=== PATIENT | female | born 1990 | race Caucasian/White ===

== ENCOUNTER 2016-07-04 10:10 | Emergency (ER) | payer OTHER ==
[~2016-07-04] VITALS: Ht 160 cm; Wt 120.0 kg
[~2016-07-04 10:10] MED LIST: BACTRIM DS 8001 TAB PO; CEFTIN250 M1 PO; LORTAB 5/500 501 TAB PO; NO HOME MEDICATIONS; NORCO 325 MG-51 TAB PO; TAMIFLU 75MG75 MG PO; ZOFRAN 4MG T4 MG/TAB PO
[2016-07-04 10:14] VITALS: BP 173/78
[2016-07-04 10:55] LABS: BASO % 0.3 % (0.0-2.0); EOS # 0.3 (0.0-0.7); EOS % 2.4 % (0-4.0); GRAN # 5.9 (1.4-6.5); GRAN % 49.9 % (42.2-75.2); HEMATOCRIT 45.2 % (37.0-47.0); HEMOGLOBIN 14.4 g/dl (12.5-16.0); LYMPH # 4.8 (1.2-3.4); LYMPH % 40.3 % (20.0-51.0); MEAN CELL VOLUME 78 fl (80.0-100.0); MEAN CORPUSCULAR HEMOGLOBIN 25 pg (27.0-31.0); MEAN CORPUSCULAR HGB CONC 32 g/dl (33.0-37.0); MEAN PLATELET VOLUME 9.7 fl (7.4-10.4); MONO # 0.8 (0.1-0.6); MONO % 6.7 % (1.7-9.3); PLATELET COUNT 442 K/mm3 (130-400); RED BLOOD COUNT 5.78 M/mm3 (4.10-5.30); REDCELL DISTRIBUTION WIDTH-CV 12.8 % (11.5-14.5); WHITE BLOOD COUNT 11.9 K/mm3 (4.8-10.8)
[2016-07-04 10:58] LABS: PH 5 (5-8); URINE APPEARANCE Hazy; URINE BACTERIA Rare /hpf; URINE BILIRUBIN Negative (NEGATIVE); URINE BLOOD Negative (NEGATIVE); URINE COLOR Yellow; URINE GLUCOSE Negative (NEGATIVE); URINE KETONE Negative (NEGATIVE); URINE RBC 0-2 /hpf; URINE UROBILINOGEN Negative (NEGATIVE); URINE WBC 0-2 /hpf
[2016-07-04 11:08] VITALS: TEMP 98.3
[2016-07-04 11:12] LABS: ADJUSTED CALCIUM 10.1 mg/dL (8.4-10.2); ALBUMIN 4.4 gm/dL (3.5-5.0); BILIRUBIN,TOTAL 0.6 mg/dL (0.0-1.0); C-REACTIVE PROTEIN 3.2 mg/dL (0.0-0.9); CALCIUM 10.4 mg/dL (8.4-10.2); CREATININE, serum 0.59 mg/dL (0.52-1.25); TOTAL PROTEIN 8.6 gm/dL (6.4-8.2)
[2016-07-04 12:07] VITALS: PULSE 105
[2016-07-04] MEDS ORDERED: ZOFRAN ODT4 MG PO (12:10)
[2016-07-04] MEDS ORDERED: NORCO 325 MG-51 TAB PO (12:14)
== END 2016-07-04 12:19 | disposition home or self-care (01) ==
LOC: COL.ER 10:10
PROVIDERS: Emergency Medicine
DX: R10.31 Right lower quadrant pain (principal)
CPT/HCPCS: J1885; J2405; J7030; Q9967

== ENCOUNTER 2017-09-12 11:25 | Emergency (ER) | payer SELFPAY ==
[~2017-09-12] VITALS: Ht 160 cm; Wt 126.8 kg
[~2017-09-12 11:25] MED LIST changes: +ZOFRAN ODT4 MG PO
[2017-09-12 11:29] VITALS: BP 147/89; TEMP 98
[2017-09-12 12:09] LABS: BASO % 0.4 % (0.0-2.0); EOS # 0.3 (0.0-0.7); EOS % 2.8 % (0-4.0); GRAN # 5.3 (1.4-6.5); GRAN % 50.1 % (42.2-75.2); HEMATOCRIT 41.2 % (37.0-47.0); HEMOGLOBIN 13.6 g/dl (12.5-16.0); LYMPH # 4.5 (1.2-3.4); LYMPH % 42.9 % (20.0-51.0); MEAN CELL VOLUME 79 fl (80.0-100.0); MEAN CORPUSCULAR HEMOGLOBIN 26 pg (27.0-31.0); MEAN CORPUSCULAR HGB CONC 33 g/dl (33.0-37.0); MEAN PLATELET VOLUME 9.4 fl (7.4-10.4); MONO # 0.4 (0.1-0.6); MONO % 3.5 % (1.7-9.3); PLATELET COUNT 350 K/mm3 (130-400); RED BLOOD COUNT 5.22 M/mm3 (4.10-5.30); REDCELL DISTRIBUTION WIDTH-CV 13.6 % (11.5-14.5)
[2017-09-12 12:11] LABS: ALANINE AMINOTRANSFERASE 39 U/L (9-52); ALKALINE PHOSPHATASE 73 U/L (50-136); ANION GAP 12 mmol/L (7-16); AST,SGOT 20 U/L (15-37); BILIRUBIN,TOTAL 0.3 mg/dL (0.0-1.0); BLOOD UREA NITROGEN 11 mg/dL (7-17); CALCIUM 9.4 mg/dL (8.4-10.2); CARBON DIOXIDE 27 mmol/L (22-30); CHLORIDE 102 mmol/L (98-107); CREATININE, serum 0.67 mg/dL (0.52-1.25); GLUCOSE 123 mg/dL (74-106); LIPASE 38 U/L (23-300); SODIUM 140 mmol/L (137-145); TOTAL PROTEIN 7.4 gm/dL (6.4-8.2)
[2017-09-12 12:24] LABS: TROPONIN-I < 0.012 ng/mL (0.000-0.034)
[2017-09-12] MEDS ORDERED: PROTONIX 40MG T40 MG PO (12:51)
[2017-09-12 13:05] VITALS: PULSE 79
== END 2017-09-12 13:05 | disposition home or self-care (01) ==
LOC: COL.ER 11:25
PROVIDERS: Emergency Medicine
DX: K21.9 Gastro-esophageal reflux disease without esophagitis (principal); F17.210 Nicotine dependence, cigarettes, uncomplicated

== ENCOUNTER 2018-11-30 22:44 | Emergency (ER) | payer SELFPAY ==
[~2018-11-30] VITALS: Ht 175.3 cm; Wt 127.3 kg
[~2018-11-30 22:44] MED LIST changes: +PROTONIX 40MG T40 MG PO
[2018-11-30 22:49] VITALS: TEMP 98.2
[2018-11-30] MEDS ORDERED: MOTRIN 200200 MG/TAB PO (23:04)
[2018-11-30 23:54] LABS: HEMATOCRIT 40.7 % (37.0-47.0); HEMOGLOBIN 13.1 g/dl (12.5-16.0); MEAN CELL VOLUME 78 fl (80.0-100.0); MEAN CORPUSCULAR HEMOGLOBIN 25 pg (27.0-31.0); MEAN CORPUSCULAR HGB CONC 32 g/dl (33.0-37.0); MEAN PLATELET VOLUME 9.8 fl (7.4-10.4); PLATELET COUNT 411 K/mm3 (130-400); REDCELL DISTRIBUTION WIDTH-CV 13.5 % (11.5-14.5)
[2018-11-30 23:55] LABS: ALANINE AMINOTRANSFERASE 9 U/L (9-52); ALBUMIN 4.3 gm/dL (3.5-5.0); ALKALINE PHOSPHATASE 73 U/L (50-136); ANION GAP 13 mmol/L (7-16); AST,SGOT 26 U/L (15-37); BILIRUBIN,TOTAL 0.4 mg/dL (0.0-1.0); BLOOD UREA NITROGEN 15 mg/dL (7-17); C-REACTIVE PROTEIN 4.2 mg/dL (0.0-0.9); CARBON DIOXIDE 23 mmol/L (22-30); CHLORIDE 103 mmol/L (98-107); CREATININE, serum 0.69 (0.52-1.25); GLUCOSE 124 mg/dL (74-106); LIPASE 58 U/L (23-300); POTASSIUM 3.6 mmol/L (3.4-5.0); SODIUM 139 mmol/L (137-145); TOTAL PROTEIN 7.9 gm/dL (6.4-8.2)
[2018-12-01 00:07] LABS: TROPONIN-I < 0.012 ng/mL (0.000-0.035)
[2018-12-01 00:14] LABS: BAND 4 % (0-10); EOSINOPHIL 1 % (0-4); LYMPHOCYTE 45 % (20.0-51.0); MICROCYTOSIS 1+; NEUTROPHILS 47 % (42.0-75.2); PLATELET ESTIMATE INCREASED (NORMAL)
[2018-12-01] MEDS ORDERED: AMOXICILLIN 8751 TAB PO (03:36)
[2018-12-01] MEDS ORDERED: CARAFATE 1GM1 G PO (03:36)
[2018-12-01 03:58] LABS: STREP SCREEN NEGATIVE
[2018-12-01 04:24] VITALS: BP 132/81; PULSE 79
== END 2018-12-01 04:24 | disposition home or self-care (01) ==
LOC: COL.ER 22:44
PROVIDERS: Emergency Medicine
DX: D72.829 Elevated white blood cell count, unspecified (principal); R06.00 Dyspnea, unspecified; R09.89 Other specified symptoms and signs involving the circulatory and respiratory systems; J02.9 Acute pharyngitis, unspecified; F17.210 Nicotine dependence, cigarettes, uncomplicated
CPT/HCPCS: J1100; J2060; J7030; Q9967

== ENCOUNTER 2018-12-06 13:57 | Day surgery (SDC) | payer SELFPAY ==
[~2018-12-06] VITALS: Ht 160 cm; Wt 123.0 kg
[~2018-12-06 13:57] MED LIST changes: +AMOXICILLIN 8751 TAB PO; +CARAFATE 1GM1 G PO; +MOTRIN 200200 MG/TAB PO
[2018-12-06] MEDS ORDERED: GICOCKTAIL PO (14:11)
[2018-12-06] MEDS ORDERED: XANAX 0.5MG0.5 MG PO (14:12)
[2018-12-06] MEDS ORDERED: PRILOSEC 20MG20 MG PO (14:30)
[2018-12-06 14:44] VITALS: BP 146/83; PULSE 100; TEMP 98.4
[2018-12-06 15:50] VITALS: BP 141/78; PULSE 90; TEMP 98.3
--- NOTE | 2018-12-06 15:50 | NUR ---
Pt to GI bay 5 via cart from ENDO. Pt drowsy, but awake. Denies pain or nausea. Family in room. Pt ambulates to recliner with stand by assitance. VSS. Will continue to monitor. Call light within reach.
[2018-12-06 16:05] VITALS: BP 131/82; PULSE 87
--- NOTE | 2018-12-06 16:05 | NUR ---
Pt continues to rest. Taking sips of water without difficulties. Will continue to monitor. Call light within reach.
[2018-12-06 16:20] VITALS: BP 108/58; PULSE 84
--- NOTE | 2018-12-06 16:20 | NUR ---
Pt continues to rest. Denies needs. Call light within reach.
--- NOTE | 2018-12-06 16:35 | NUR ---
Discharge instructions reviewed. Pt voices understanding. IV site discontinued with all parts intact. Pt up to dress. Call light within reach.
--- NOTE | 2018-12-06 16:40 | NUR ---
Pt escorted to private car via wheel chair. Pt accompanied home by her family.
== END 2018-12-06 16:40 | disposition home or self-care (01) ==
LOC: SDCO 13:57
DX: K21.9 Gastro-esophageal reflux disease without esophagitis (principal); F41.9 Anxiety disorder, unspecified; E66.01 Morbid (severe) obesity due to excess calories; Z68.42 Body mass index [BMI] 45.0-49.9, adult
CPT/HCPCS: J2250; J3010; J7030

== ENCOUNTER 2019-08-29 18:50 | Emergency (ER) | payer OTHER ==
[~2019-08-29] VITALS: Ht 160 cm; Wt 100.5 kg
[~2019-08-29 18:50] MED LIST changes: +GICOCKTAIL PO; +PRILOSEC 20MG20 MG PO; +XANAX 0.5MG0.5 MG PO
[2019-08-29 18:53] VITALS: TEMP 97.8
[2019-08-29] MEDS ORDERED: PEPCID 20MG TAB20 MG PO (19:16)
[2019-08-29] MEDS ORDERED: GLUCOPHAGE500 MG/TAB PO (19:16)
[2019-08-29] MEDS ORDERED: GICOCKTAIL PO (19:17)
[2019-08-29] MEDS ORDERED: PROTONIX 40MG T40 MG PO (19:17)
[2019-08-29 19:56] LABS: COLLECTION METHOD CLEAN CATCH
[2019-08-29 20:02] LABS: HEMATOCRIT 42.8 % (37.0-47.0); HEMOGLOBIN 13.6 g/dl (12.5-16.0); MEAN CELL VOLUME 79 fl (80.0-100.0); MEAN CORPUSCULAR HEMOGLOBIN 25 pg (27.0-31.0); MEAN CORPUSCULAR HGB CONC 32 g/dl (33.0-37.0); MEAN PLATELET VOLUME 10.2 fl (7.4-10.4); PLATELET COUNT 371 K/mm3 (130-400); REDCELL DISTRIBUTION WIDTH-CV 13.9 % (11.5-14.5)
[2019-08-29 20:07] LABS: MUCOUS Present /lpf; PH 5 (5-8); URINE APPEARANCE Hazy; URINE BACTERIA None Seen /hpf; URINE BILIRUBIN Negative (NEGATIVE); URINE BLOOD Negative (NEGATIVE); URINE COLOR Yellow; URINE GLUCOSE Negative (NEGATIVE); URINE KETONE 1+ (NEGATIVE); URINE LEUKOCYTE ESTERASE Negative (NEGATIVE); URINE NITRATE Negative (NEGATIVE); URINE PROTEIN(semi-quant) Negative (NEGATIVE); URINE RBC 0-2 /hpf; URINE UROBILINOGEN Negative (NEGATIVE)
[2019-08-29 20:17] LABS: ALBUMIN 4.8 gm/dL (3.5-5.0); BILIRUBIN,TOTAL 0.4 mg/dL (0.0-1.0); C-REACTIVE PROTEIN 1.9 mg/dL (0.0-0.9); CREATININE, serum 0.68 (0.52-1.25); POTASSIUM 3.5 mmol/L (3.4-5.0); TOTAL PROTEIN 8.2 gm/dL (6.4-8.2)
[2019-08-29 20:47] LABS: EOSINOPHIL 1 % (0-4); LYMPHOCYTE 50 % (20.0-51.0); NEUTROPHILS 48 % (42.0-75.2); PLATELET ESTIMATE NORMAL (NORMAL)
[2019-08-29] MEDS ORDERED: NEURONTIN300 MG/CAP PO (21:01)
[2019-08-29 21:26] VITALS: BP 135/84; PULSE 68
[2019-08-30 08:39] LABS: PATHOLOGY DIFF REVIEW OK
== END 2019-08-29 21:30 | disposition home or self-care (01) ==
LOC: COL.ER 18:50
PROVIDERS: Physician Assistant
DX: R20.2 Paresthesia of skin (principal); K21.9 Gastro-esophageal reflux disease without esophagitis; F17.210 Nicotine dependence, cigarettes, uncomplicated; Z79.84 Long term (current) use of oral hypoglycemic drugs
CPT/HCPCS: J7030

== ENCOUNTER → 2019-09-27 | Outpatient (CLI) | payer OTHER ==
[~2019-09-27] MED LIST changes: +GLUCOPHAGE500 MG/TAB PO; +NEURONTIN300 MG/CAP PO; +PEPCID 20MG TAB20 MG PO
== END ==
LOC: COL.RAD 13:00
DX: R13.10 Dysphagia, unspecified (principal)

== ENCOUNTER → 2019-11-08 | Outpatient (CLI) | payer OTHER ==
[~2019-11-08] MED LIST changes: +KLONOPIN 0.5MG0.5 MG PO; +KLONOPIN WAFER0.5 MG PO; +MOTRIN 600600 MG/TAB PO
== END ==
LOC: BHSO 15:48
DX: F41.1 Generalized anxiety disorder (principal)

== ENCOUNTER 2019-11-10 17:20 | Inpatient (IN) | payer OTHER ==
[~2019-11-10] VITALS: Ht 160 cm; Wt 93.5 kg
[~2019-11-10 17:20] MED LIST changes: -KLONOPIN 0.5MG0.5 MG PO; -KLONOPIN WAFER0.5 MG PO; -MOTRIN 600600 MG/TAB PO
[2019-11-10 18:39] LABS: COLLECTION METHOD CLEAN CATCH
[2019-11-10 18:43] LABS: BASO % 0.2 % (0.0-2.0); EOS # 0.1 (0.0-0.7); EOS % 0.4 % (0-4.0); GRAN # 10.3 (1.4-6.5); GRAN % 64.4 % (42.2-75.2); HEMATOCRIT 43.5 % (37.0-47.0); HEMOGLOBIN 13.8 g/dl (12.5-16.0); LYMPH # 4.7 (1.2-3.4); LYMPH % 29.4 % (20.0-51.0); MEAN CELL VOLUME 81 fl (80.0-100.0); MEAN CORPUSCULAR HEMOGLOBIN 26 pg (27.0-31.0); MEAN CORPUSCULAR HGB CONC 32 g/dl (33.0-37.0); MEAN PLATELET VOLUME 10.3 fl (7.4-10.4); MONO # 0.8 (0.1-0.6); MONO % 5.2 % (1.7-9.3); PLATELET COUNT 390 K/mm3 (130-400); RED BLOOD COUNT 5.36 M/mm3 (4.10-5.30)
[2019-11-10 18:46] LABS: MUCOUS Present /lpf; PH 5 (5-8); SQUAMOUS EPITHELIAL 0-2 /hpf; URINE APPEARANCE Hazy; URINE BACTERIA None Seen /hpf; URINE BILIRUBIN Positive (NEGATIVE); URINE BLOOD Negative (NEGATIVE); URINE CALCIUM OXALATE CRYSTAL Present /hpf; URINE COLOR Amber; URINE GLUCOSE Negative (NEGATIVE); URINE KETONE Trace (NEGATIVE); URINE LEUKOCYTE ESTERASE Negative (NEGATIVE); URINE NITRATE Negative (NEGATIVE); URINE PROTEIN(semi-quant) 1+ (NEGATIVE); URINE RBC >50 /hpf; URINE UROBILINOGEN >=4.0 mg/dL (NEGATIVE)
[2019-11-10 18:58] LABS: ALANINE AMINOTRANSFERASE 431 U/L (4-34); ALBUMIN 4.7 gm/dL (3.5-5.0); ALKALINE PHOSPHATASE 194 U/L (50-136); ANION GAP 9 mmol/L (7-16); AST,SGOT 373 U/L (15-37); BILIRUBIN,TOTAL 1.2 mg/dL (0.0-1.0); BLOOD UREA NITROGEN 13 mg/dL (7-17); C-REACTIVE PROTEIN 1.7 mg/dL (0.0-0.9); CARBON DIOXIDE 27 mmol/L (22-30); CHLORIDE 101 mmol/L (98-107); GLUCOSE 120 mg/dL (74-106); POTASSIUM 3.3 mmol/L (3.4-5.0); SODIUM 137 mmol/L (137-145); TOTAL PROTEIN 8.1 gm/dL (6.4-8.2)
[2019-11-10 19:09] LABS: TROPONIN-I < 0.012 ng/mL (0.000-0.035)
[2019-11-10] MEDS ORDERED: KLONOPIN WAFER0.5 MG PO (19:41)
[2019-11-10] MEDS ORDERED: KLONOPIN 0.5MG0.5 MG PO (19:42)
[2019-11-10 21:47] LABS: LIPASE 13397 U/L (23-300)
--- NOTE | 2019-11-10 22:21 | NUR ---
PT ARRIVED VIA WHEELCHAIR ACCOMPANIED BY AN RN. PT ABLE TO AMBULATE AND GAIT STEADY. PT ADVISES THAT HER PAIN HAS BEEN IN UPPER MID-ABDOMEN. ALSO, ADVISES THAT NAUEA IS SOME WHAT BETTER. NO NEEDS AT THIS TIME. CALL LIGHT WITHIN REACH.
[2019-11-10 23:17] VITALS: BP 132/70; PULSE 61; TEMP 98
--- NOTE | 2019-11-11 01:21 | NUR ---
PT ARRIVED TO UNIT ABOUT 2200, VIA WHEEL CHAIR WITH C/O ABDOMINAL PAIN. NO SKIN ISSUE AND LUNG SOUNDS AND HEART RATE REGULAR. PT AMBULATION WITH STEADY GAIT. CALL LIGHT WITHIN REACH.
[2019-11-11 04:36] VITALS: BP 118/67; PULSE 61; TEMP 97.9
--- NOTE | 2019-11-11 05:52 | NUR ---
PT WAS GIVEN PAIN MEDICATION AROUND 2324. PT DRIFTED OFF TO SLEEP. WENT INTO ROOM TO CHECK ON PT AND PT STATED THAT SHE DID NOT NEED PAIN MEDICATION. HER PAIN WAS WELL CONTROLLED AND IT WAS ONLY A DULL PAIN. PT ADVISED TO CALL FOR ASSISTANCE WHEN GETTING OUT OF BED. CALL LIGHT WITHIN REACH.
[2019-11-11 07:11] LABS: BASO % 0.4 % (0.0-2.0); EOS # 0.2 (0.0-0.7); EOS % 1.5 % (0-4.0); GRAN # 4.3 (1.4-6.5); GRAN % 43.8 % (42.2-75.2); HEMOGLOBIN 13.3 g/dl (12.5-16.0); LYMPH # 4.8 (1.2-3.4); LYMPH % 48.5 % (20.0-51.0); MEAN CELL VOLUME 82 fl (80.0-100.0); MEAN CORPUSCULAR HEMOGLOBIN 26 pg (27.0-31.0); MEAN CORPUSCULAR HGB CONC 32 g/dl (33.0-37.0); MEAN PLATELET VOLUME 10.6 fl (7.4-10.4); MONO # 0.5 (0.1-0.6); MONO % 5.5 % (1.7-9.3); PLATELET COUNT 334 K/mm3 (130-400); REDCELL DISTRIBUTION WIDTH-CV 14.3 % (11.5-14.5)
[2019-11-11 07:18] VITALS: BP 132/84; PULSE 60; TEMP 98.5
[2019-11-11 07:37] LABS: ALBUMIN 3.9 gm/dL (3.5-5.0); CALCIUM 9.3 mg/dL (8.4-10.2); CREATININE, serum 0.66 (0.52-1.25); POTASSIUM 3.6 mmol/L (3.4-5.0); TOTAL PROTEIN 6.9 gm/dL (6.4-8.2)
[2019-11-11 11:11] VITALS: BP 129/70; PULSE 63; TEMP 98.4
--- NOTE | 2019-11-11 16:09 | NUR ---
Accounting/Finance Tutor met with patient to discuss discharge planning. Patient lives in [place] with her , Teddy (ph#[phone]) and sees SOPHIA Ramirez at [facility] for primary care. Patient obtains medications from [facility] with no difficulties. Patient does not use DME and reports independence with ADLS. Patient does not have Advance Directives. Patient plans to return home upon discharge. No additional needs at this time.
[2019-11-11 17:16] VITALS: BP 145/83; PULSE 62; TEMP 97.6
--- NOTE | 2019-11-11 19:39 | NUR ---
Patient resting in bed. rounded. Plan of care reviewed. Plans for OR Thursday. Ultrasound completed. Labs completed. Patient did have elevated abdominal pain after clears for dinner. Iv dialudid for pain per orders. & zofran as needed for nausea. Ivf continue. She has voided. Patient was anxious placed in a new room with a better view to try and assist her anxiety. SHe has spoken on the phine multiple times with family
[2019-11-11 19:42] VITALS: BP 145/84; PULSE 60; TEMP 98
--- NOTE | 2019-11-11 20:00 | NUR ---
Received report from RAUL Damon. Pt was sitting up in her chair. Pt has her call light within reach.
[2019-11-11 23:52] VITALS: BP 128/68; PULSE 88; TEMP 97.6
--- NOTE | 2019-11-12 02:27 | NUR ---
Pt currently lying in bed resting. Pt did call out because her IV was beeping. Pt stated that her pain is ok, and she would call out for pain medication when needed. She has her call light within reach
[2019-11-12 04:18] VITALS: BP 125/83; PULSE 60; TEMP 97.5
[2019-11-12 06:24] LABS: BASO % 0.1 % (0.0-2.0); EOS # 0.2 (0.0-0.7); EOS % 3.3 % (0-4.0); GRAN # 4.1 (1.4-6.5); GRAN % 55.5 % (42.2-75.2); HEMATOCRIT 45.7 % (37.0-47.0); HEMOGLOBIN 14.7 g/dl (12.5-16.0); LYMPH # 2.7 (1.2-3.4); LYMPH % 36.2 % (20.0-51.0); MEAN CELL VOLUME 82 fl (80.0-100.0); MEAN CORPUSCULAR HEMOGLOBIN 26 pg (27.0-31.0); MEAN CORPUSCULAR HGB CONC 32 g/dl (33.0-37.0); MONO # 0.3 (0.1-0.6); MONO % 4.6 % (1.7-9.3); RED BLOOD COUNT 5.57 M/mm3 (4.10-5.30); REDCELL DISTRIBUTION WIDTH-CV 14.4 % (11.5-14.5)
[2019-11-12 06:25] LABS: PLATELET COUNT 183 K/mm3 (130-400)
[2019-11-12 06:30] LABS: ALBUMIN 3.2 gm/dL (3.5-5.0); BILIRUBIN,TOTAL 1.4 mg/dL (0.0-1.0); CALCIUM 8.8 mg/dL (8.4-10.2); CREATININE, serum 0.52 (0.52-1.25); POTASSIUM 3.5 mmol/L (3.4-5.0)
[2019-11-12 07:28] VITALS: BP 128/88; PULSE 66; TEMP 98.1
--- NOTE | 2019-11-12 08:02 | NUR ---
PATIENT RESTING IN BED THIS MORNING. PATIENT IS A&OX4. VSS. BOWEL SOUNDS ACTIVE ALL FOUR QUADRANTS. PATIENT TOLERATING FULL LIQUID DIET WITH SOME NAUSEA BUT PATIENT DENIES VOMITING. PATIENT GIVEN PRN DOSE OF IV ZOFRAN AT THIS TIME. POSITIVE PEDAL PULSES EQUAL BILATERALLY. NON-PITTING EDEMA TO BUE. IV FLUIDS INFUSING TO RIGHT FOREARM IV VIA PUMP. PATIENT RATING HER PAIN A 6/10 ON A 0-10 SCALE IN THE EPIGASTRIC REGION AND STATES THAT IT IS SHARP/STABBING IN NATURE THAT IS INTERMITTENT AND WORSE WHEN SHE IS SITTING UPRIGHT. CALL LIGHT WITHIN REACH. PATIENT DENIES ANY OTHER NEEDS AT THIS TIME.
[2019-11-12 11:27] VITALS: BP 130/85; PULSE 58; TEMP 98.2
--- NOTE | 2019-11-12 15:41 | NUR ---
REPORT GIVEN TO RAUL WARD.
[2019-11-12 16:01] VITALS: BP 118/73; PULSE 63; TEMP 97.9
--- NOTE | 2019-11-12 16:23 | NUR ---
Called Dr. Gonzalez regarding pain medicaitons on EMAR for patient, orders received, inputted and provided medications. PT up in shower at this time, denies other needs, will continue to monitor.
--- NOTE | 2019-11-12 18:07 | NUR ---
PT agreeable to [place], managing pain well. Resting on bench at side of bed, up ambulating in hallways with mask this evening. Denies needs, will give bedside shift report to nightshift nurse who will resume care.
[2019-11-12 20:03] VITALS: BP 134/85; PULSE 60; TEMP 97.8
--- NOTE | 2019-11-12 20:15 | NUR ---
PT IN BED. IS ALERT AND ORIENTED X4. HAS IVF INFUSING TO RIGHT AC WITHOUT REDNESS OR SWELLING. ASKING FOR MELATONIN FOR SLEEP, DR BLAS NOTIFIED AND OKAYED. DOSE GIVEN NOW.
[2019-11-12 23:45] VITALS: BP 101/58; PULSE 52; TEMP 98.2
--- NOTE | 2019-11-13 00:30 | NUR ---
Pt resting well, denies need for pain meds at this time.
[2019-11-13 04:35] VITALS: BP 114/59; PULSE 67; TEMP 98.1
--- NOTE | 2019-11-13 04:39 | NUR ---
Pt awake, denies need for pain meds at this time.
[2019-11-13 05:50] LABS: BASO % 0.4 % (0.0-2.0); EOS # 0.4 (0.0-0.7); EOS % 4.1 % (0-4.0); GRAN # 4.5 (1.4-6.5); GRAN % 49.2 % (42.2-75.2); LYMPH # 3.8 (1.2-3.4); LYMPH % 41.9 % (20.0-51.0); MEAN CELL VOLUME 83 fl (80.0-100.0); MEAN CORPUSCULAR HGB CONC 31 g/dl (33.0-37.0); MEAN PLATELET VOLUME 10.8 fl (7.4-10.4); MONO # 0.4 (0.1-0.6); MONO % 4.2 % (1.7-9.3); PLATELET COUNT 274 K/mm3 (130-400); RED BLOOD COUNT 4.14 M/mm3 (4.10-5.30); REDCELL DISTRIBUTION WIDTH-CV 14.4 % (11.5-14.5)
[2019-11-13 05:51] LABS: HEMATOCRIT 34.2 % (37.0-47.0); HEMOGLOBIN 10.7 g/dl (12.5-16.0); MEAN CORPUSCULAR HEMOGLOBIN 26 pg (27.0-31.0)
--- NOTE | 2019-11-13 05:53 | NUR ---
Reports pain 7/10 to abdomen and nausea, medicated with [place] 2 tabs po crushed in pudding and Zofran 4mg IVP.
[2019-11-13 06:00] LABS: ALBUMIN 2.9 gm/dL (3.5-5.0); BILIRUBIN,TOTAL 0.6 mg/dL (0.0-1.0); CALCIUM 8.7 mg/dL (8.4-10.2); CREATININE, serum 0.55 (0.52-1.25); POTASSIUM 3.5 mmol/L (3.4-5.0); TOTAL PROTEIN 5.5 gm/dL (6.4-8.2)
--- NOTE | 2019-11-13 07:56 | NUR ---
Patient sitting up at edge of bed. She tolerated some breakfast, but reports lingering nausea. Pain is better managed after PO norco early this am. IVF to [place]. Patient reports voiding without difficulty & having a few loose stools this am. We reviewed hygiene & showering today. Will monitor.
[2019-11-13 07:58] VITALS: BP 126/82; PULSE 64; TEMP 97.7
[2019-11-13 11:19] VITALS: BP 119/72; PULSE 56; TEMP 98.1
--- NOTE | 2019-11-13 12:02 | NUR ---
Patient showered, surgical scrub used in anticipation of surgery tmrw. Patient sitting up working on her lunch try, she continues to have lingering nausea, zofran per request. IVf as ordered.
--- NOTE | 2019-11-13 14:19 | NUR ---
Patient resting in bed. Visiting on the phone with her family.
[2019-11-13 16:19] VITALS: BP 125/66; PULSE 56; TEMP 98.1
--- NOTE | 2019-11-13 16:45 | NUR ---
Patient axious & tearful. notifed. She is very worried about her surgery. Home Klonopin ordered. Tried to be supportive
--- NOTE | 2019-11-13 18:23 | NUR ---
Anesthesia rounded. Patient is feeling alot better. Nerves are better. Nausea is improved.
--- NOTE | 2019-11-13 19:25 | NUR ---
PT SIGNS CONSENT FOR SURGERY IN AM. FEELING ANXIOUS ABOUT HAVING SURGERY WITHOUT FAMILY PRESENT. REASSURANCE PROVIDED.
[2019-11-13 20:05] VITALS: BP 104/80; PULSE 60; TEMP 98
--- NOTE | 2019-11-13 20:20 | NUR ---
MEDICATED WITH MELATONIN CRUSHED IN PUDDING FOR SLEEP. PT AWARE SHE WILL BE NPO AFTER MIDNIGHT. IV SITE TO RIGHT AC REMAINS PATENT. VOIDING WITHOUT PROBLEM. INDEPENDENT IN THE ROOM. DENIES NEED FOR PAIN MEDS AT THIS TIME.
[2019-11-13 23:58] VITALS: BP 112/62; PULSE 57; TEMP 97.7
[2019-11-14] VITALS (10 sets, daily range): BP systolic 124–145; BP diastolic 70–82; PULSE 52–117; TEMP 97.7–98.2
--- NOTE | 2019-11-14 05:07 | NUR ---
PT ASKING FOR PAIN MEDS, PAIN 6/10 TO ABDOMEN. MEDICATED WITH DILAUDID 0.25MG IV NOW. PT ANXIOUS FOR SURGERY.
[2019-11-14 06:18] LABS: PROTHROMBIN TIME 10.7 SECONDS (9.7-12.8)
[2019-11-14 07:33] LABS: BASO % 0.5 % (0.0-2.0); EOS # 0.3 (0.0-0.7); GRAN # 3.6 (1.4-6.5); GRAN % 44.4 % (42.2-75.2); HEMATOCRIT 38.3 % (37.0-47.0); HEMOGLOBIN 11.9 g/dl (12.5-16.0); LYMPH # 3.8 (1.2-3.4); LYMPH % 46.9 % (20.0-51.0); MEAN CELL VOLUME 84 fl (80.0-100.0); MEAN CORPUSCULAR HEMOGLOBIN 26 pg (27.0-31.0); MEAN CORPUSCULAR HGB CONC 31 g/dl (33.0-37.0); MEAN PLATELET VOLUME 11.3 fl (7.4-10.4); MONO # 0.3 (0.1-0.6); PLATELET COUNT 248 K/mm3 (130-400); RED BLOOD COUNT 4.58 M/mm3 (4.10-5.30); REDCELL DISTRIBUTION WIDTH-CV 14.6 % (11.5-14.5)
[2019-11-14 07:38] LABS: ALBUMIN 3.4 gm/dL (3.5-5.0); BILIRUBIN,TOTAL 0.6 mg/dL (0.0-1.0); CALCIUM 9.2 mg/dL (8.4-10.2); CREATININE, serum 0.62 (0.52-1.25); POTASSIUM 3.8 mmol/L (3.4-5.0); TOTAL PROTEIN 6.3 gm/dL (6.4-8.2)
--- NOTE | 2019-11-14 08:00 | NUR ---
Patient alert and oriented, answers questions appropriately. See assessment. Abdomen soft, non tender, non distended. Bowel sounds hyperactive x4 quads. +Flatus. +Bowel movement. No c/o pain or discomfort.
--- NOTE | 2019-11-14 08:13 | NUR ---
To surgery at this time. NPO since midnoc. Chlorhexadine shower completed.
[2019-11-14] MEDS ORDERED: NORCO 325 MG-51 TAB PO (10:41)
[2019-11-14] MEDS ORDERED: MOTRIN 600600 MG/TAB PO (10:42)
--- NOTE | 2019-11-14 11:40 | NUR ---
Patient returns from surgery at this time. Assessment unchanged except: abdomen lap sites with edges well approximated, no redness or drainage noted. Bowel sounds hypoactive x4 quads. No flatus. Ambulates to bathroom. No c/o at this time.
--- NOTE | 2019-11-14 18:53 | NUR ---
Discharge instructions reviewed with patient, verbalized understanding. Discharged via wheelchair to auto/home with family at 1850.
== END 2019-11-14 18:50 | disposition home or self-care (01) | DRG 419 ==
LOC: COL.ER 17:20 → SURG 20:13
PROVIDERS: Emergency Medicine; Surgery; ADMIT Surgery
PROC: BF121ZZ Fluoroscopy of Gallbladder using Low Osmolar Contrast (ICD-10-PCS; 2019-11-14)
PROC: 0FT44ZZ Resection of Gallbladder, Percutaneous Endoscopic Approach (ICD-10-PCS; principal; 2019-11-14 08:30)
DX: K85.10 Biliary acute pancreatitis without necrosis or infection (principal); E66.01 Morbid (severe) obesity due to excess calories; Z68.36 Body mass index [BMI] 36.0-36.9, adult; F41.9 Anxiety disorder, unspecified; F17.200 Nicotine dependence, unspecified, uncomplicated; K81.9 Cholecystitis, unspecified
CPT/HCPCS: J0330; J1100; J1170; J1885; J2250; J2405; J2543; J2550; J2704; J3010; J7030; Q9967

== ENCOUNTER → 2019-11-17 | Outpatient (CLI) | payer OTHER ==
[~2019-11-17] MED LIST changes: +KLONOPIN 0.5MG0.5 MG PO; +KLONOPIN WAFER0.5 MG PO; +MOTRIN 600600 MG/TAB PO
== END ==
LOC: BHSO 16:00
DX: F41.1 Generalized anxiety disorder (principal)

== ENCOUNTER → 2019-11-23 | Outpatient (CLI) | payer OTHER | LOC: BHSO 15:58 | DX: F41.1 Generalized anxiety disorder (principal) ==

== ENCOUNTER → 2019-11-30 | Outpatient (CLI) | payer OTHER | LOC: BHSO 15:50 | DX: F41.1 Generalized anxiety disorder (principal) ==

== ENCOUNTER → 2019-12-08 | Outpatient (CLI) | payer OTHER | LOC: BHSO 15:58 | DX: F40.233 Fear of injury (principal) ==

== ENCOUNTER → 2019-12-15 | Outpatient (CLI) | payer OTHER | LOC: BHSO 16:04 | DX: F40.228 Other natural environment type phobia (principal) ==

== ENCOUNTER → 2019-12-22 | Outpatient (CLI) | payer OTHER | LOC: BHSO 15:59 | DX: F40.248 Other situational type phobia (principal) ==

== ENCOUNTER → 2020-01-19 | Outpatient (CLI) | payer OTHER | LOC: BHSO 16:01 | DX: F40.248 Other situational type phobia (principal) ==

== ENCOUNTER → 2020-01-27 | Outpatient (CLI) | payer OTHER | LOC: BHSO 15:58 | DX: F40.248 Other situational type phobia (principal) ==

== ENCOUNTER → 2020-02-10 | Outpatient (CLI) | payer OTHER | LOC: BHSO 15:41 | DX: F40.248 Other situational type phobia (principal) ==

== ENCOUNTER → 2020-02-24 | Outpatient (CLI) | payer OTHER | LOC: BHSO 15:58 | DX: F40.248 Other situational type phobia (principal) ==

== ENCOUNTER → 2020-03-07 | Outpatient (CLI) | payer OTHER | LOC: BHSO 15:57 | DX: F40.248 Other situational type phobia (principal) ==

== ENCOUNTER → 2020-03-15 | Outpatient (CLI) | payer OTHER | LOC: BHSO 15:57 | DX: F40.248 Other situational type phobia (principal) ==

== ENCOUNTER → 2020-03-28 | Outpatient (CLI) | payer OTHER | LOC: BHSO 15:51 | DX: F40.248 Other situational type phobia (principal) ==

== ENCOUNTER → 2020-05-02 | Outpatient (CLI) | payer OTHER | LOC: BHSO 15:58 | DX: F40.248 Other situational type phobia (principal) ==